=== PATIENT | female | born 1930 | race Caucasian/White ===

== ENCOUNTER 2017-08-18 14:05 | Inpatient (IN) | payer MEDICARE ==
[~2017-08-18] VITALS: Ht 144.8 cm; Wt 68.5 kg
[2017-08-18] MEDS ORDERED: SODIUM CHLORIDE FLUSH 10ML SYR IVF ONE (14:30)
[2017-08-18] MEDS ORDERED: ATOR-2 PO (15:09)
[2017-08-18] MEDS ORDERED: METO50TA82 PO (15:11)
[2017-08-18] MEDS ORDERED: OMEP-110 PO (15:11)
[2017-08-18] MEDS ORDERED: CLOP75TA PO (15:11)
[2017-08-18] MEDS ORDERED: ENAL10TA PO (15:15)
[2017-08-18] MEDS ORDERED: OMEG-170 PO (15:15)
[2017-08-18] MEDS ORDERED: ASPI-515 PO (15:15)
[2017-08-18] MEDS ORDERED: HYDR12.53 PO (15:15)
[2017-08-18] MEDS ORDERED: CALC1CAP8 PO (15:16)
[2017-08-18] MEDS ORDERED: ACET-76 PO (15:18)
[2017-08-18 17:48] VITALS: BP 159/69
[2017-08-18 18:34] VITALS: BP 143/56
[2017-08-18] MEDS ORDERED: ONDANSETRON 2MG/ML, 2ML IVPush PRN (19:00)
[2017-08-18] MEDS ORDERED: ENALAPRILAT 1.25 MG/ML, 2ML IVPush PRN (19:00)
[2017-08-18] MEDS ORDERED: morphine SULFATE 10 MG/ML, 1ML IVPush PRN (19:00)
[2017-08-18] MEDS ORDERED: POLYETHYLENE GLYCOL 17 GM PACKET PO PRN (19:00)
[2017-08-18] MEDS ORDERED: BISACODYL 10 MG SUPP PR PRN (19:00)
[2017-08-18] MEDS ORDERED: ACETAMINOPHEN 325 MG TABLET PO PRN (19:00)
[2017-08-18] MEDS ORDERED: ATROPINE 0.4 MG/ML, 1ML IVPush PRN (19:00)
[2017-08-18] MEDS ORDERED: hydrALAzine 20 MG/ML, 1ML IVPush PRN (19:00)
[2017-08-18] MEDS ORDERED: ACETAMINOPHEN 500 MG TABLET PO PRN (19:00)
[2017-08-18] MEDS ORDERED: DOCUSATE 100 MG CAPSULE PO PRN (19:00)
[2017-08-18] MEDS ORDERED: OXYcodone IR 5MG TABLET PO PRN (19:00)
[2017-08-18 19:19] LABS: PATH.CAST-FLAG NOT PRESENT; SPERM-FLAG NOT PRESENT; SRC-FLAG NOT PRESENT; XTAL-FLAG NOT PRESENT; YLC-FLAG NOT PRESENT
[2017-08-18] MEDS ORDERED: MAGNESIUM SULFATE PMX 4GM/100M 100 ML IV ONE (20:30)
[2017-08-18] MEDS ORDERED: ENALAPRIL 5MG TABLET ONE (20:35)
[2017-08-18] MEDS: HEPARIN 5,000 UNITS/ML, 1ML SQ SCH (20:38)
[2017-08-18] MEDS: OMEGA-3/FISH OIL CAPSULE PO SCH (20:39)
[2017-08-18] MEDS: ATORVASTATIN 80 MG TABLET PO SCH (20:39)
[2017-08-18] MEDS: CALCIUM/VITAMIN D3 250-125 TABLET PO SCH (20:39)
[2017-08-18] MEDS: ENALAPRIL 10 MG TABLET PO SCH (20:39)
[2017-08-18] MEDS ORDERED: METOPROLOL TARTRATE 50 MG TABLET PO SCH (21:00)
[2017-08-18 23:40] LABS: IS PT STATUS REG ER OR PRE ER? NO
[2017-08-19 01:21] VITALS: BP 110/52
[2017-08-19] MEDS: HEPARIN 5,000 UNITS/ML, 1ML SQ SCH ×3 (03:00→21:44)
[2017-08-19 04:47] LABS: HEMATOCRIT 34.8 % (34.6-47.8); WHITE BLOOD COUNT 8.6 x10^3/uL (3.4-10)
[2017-08-19 05:06] LABS: ASPARTATE AMINO TRANSFERASE 29 U/L (15-37); BLOOD UREA NITROGEN 15 mg/dL (7-18)
[2017-08-19 05:07] LABS: IS PT STATUS REG ER OR PRE ER? NO
[2017-08-19 06:54] VITALS: BP 121/67
[2017-08-19] MEDS ORDERED: CLOPIDOGREL 75 MG TABLET PO SCH (09:00)
[2017-08-19] MEDS ORDERED: ASPIRIN 81 MG TABLET EC PO SCH (09:00)
[2017-08-19] MEDS: SODIUM CHLORIDE 0.9% 1,000 ML IV SCH ×2 (09:29→17:29)
[2017-08-19] MEDS: HYDROCHLOROTHIAZIDE 12.5 MG CAPSULE PO SCH (09:56)
[2017-08-19] MEDS: CALCIUM/VITAMIN D3 250-125 TABLET PO SCH ×2 (09:56→21:46)
[2017-08-19] MEDS: OMEPRAZOLE 20 MG CAPSULE.DR PO SCH (09:56)
[2017-08-19] MEDS: OMEGA-3/FISH OIL CAPSULE PO SCH ×2 (09:57→21:45)
[2017-08-19] MEDS ORDERED: FUROSEMIDE 20 MG/2 ML IV ONE (10:30)
[2017-08-19 12:03] VITALS: BP 125/64
[2017-08-19] MEDS: CEFTRIAXONE PMX 1GM/50ML 50 ML IV SCH (12:08)
[2017-08-19 19:33] VITALS: BP 139/71
[2017-08-19] MEDS: ENALAPRIL 10 MG TABLET PO SCH (21:45)
[2017-08-19] MEDS: ATORVASTATIN 80 MG TABLET PO SCH (21:45)
[2017-08-19 21:55] VITALS: BP 138/50
[2017-08-20] MEDS: SODIUM CHLORIDE 0.9% 1,000 ML IV SCH ×3 (01:51→17:29)
[2017-08-20] MEDS: HEPARIN 5,000 UNITS/ML, 1ML SQ SCH ×3 (02:05→19:00)
[2017-08-20 02:24] VITALS: BP 100/44
[2017-08-20 06:10] LABS: BLOOD UREA NITROGEN 17 mg/dL (7-18)
[2017-08-20 07:55] VITALS: BP 117/64
[2017-08-20] MEDS ORDERED: VANCOMYCIN PMX 1GM/200ML 200 ML IVPB SCH (08:00)
[2017-08-20] MEDS: OMEGA-3/FISH OIL CAPSULE PO SCH ×2 (09:00→22:14)
[2017-08-20] MEDS: CALCIUM/VITAMIN D3 250-125 TABLET PO SCH ×2 (09:00→22:15)
[2017-08-20] MEDS: HYDROCHLOROTHIAZIDE 12.5 MG CAPSULE PO SCH (09:10)
[2017-08-20] MEDS: OMEPRAZOLE 20 MG CAPSULE.DR PO SCH (09:10)
[2017-08-20] MEDS: CEFTRIAXONE PMX 1GM/50ML 50 ML IV SCH (12:19)
[2017-08-20 13:15] VITALS: BP 146/63
[2017-08-20] MEDS ORDERED: CEFAZOLIN PMX 1GM/50ML 0 ML ONE (13:19)
[2017-08-20] MEDS ORDERED: MIDAZOLAM 1 MG/ML, 5ML ONE (13:19)
[2017-08-20] MEDS ORDERED: FENTANYL PF 100 MCG/2ML ONE (13:19)
[2017-08-20] MEDS ORDERED: CEFAZOLIN 1,000 MG ONE (13:20)
[2017-08-20] MEDS ORDERED: VANCOMYCIN 500 MG ONE (13:41)
[2017-08-20] MEDS ORDERED: LIDOCAINE 2%, 20ML ONE (14:03)
[2017-08-20] MEDS ORDERED: HYDROcodone/APAP 5/325 TABLET PO PRN (15:00)
[2017-08-20 20:12] VITALS: BP 131/68
[2017-08-20] MEDS: ATORVASTATIN 80 MG TABLET PO SCH (22:14)
[2017-08-20] MEDS: ENALAPRIL 10 MG TABLET PO SCH (22:14)
[2017-08-20 23:26] VITALS: BP 111/71
[2017-08-21 06:00] VITALS: BP 127/82
[2017-08-21] MEDS ORDERED: ASPIRIN 81 MG TABLET EC PO SCH (06:00)
[2017-08-21] MEDS ORDERED: METOPROLOL SUCCINATE 25 MG TAB.ER.24H PO SCH (06:00)
[2017-08-21] MEDS: CALCIUM/VITAMIN D3 250-125 TABLET PO SCH (07:32)
[2017-08-21] MEDS: HYDROCHLOROTHIAZIDE 12.5 MG CAPSULE PO SCH (07:32)
[2017-08-21] MEDS: OMEPRAZOLE 20 MG CAPSULE.DR PO SCH (07:32)
[2017-08-21] MEDS: OMEGA-3/FISH OIL CAPSULE PO SCH (07:32)
[2017-08-21 08:31] VITALS: BP 126/79
[2017-08-21] MEDS ORDERED: CLOPIDOGREL 75 MG TABLET PO SCH (09:00)
[2017-08-21] MEDS: CEFTRIAXONE PMX 1GM/50ML 50 ML IV SCH ×2 (11:01→12:49)
[2017-08-21 12:31] VITALS: BP 124/74
[2017-08-21] MEDS ORDERED: CEPH-376 PO (14:15)
[2017-08-21] MEDS ORDERED: TRAM50TA2 PO (15:30)
== END 2017-08-21 15:46 | disposition home health service (06) | DRG 242 ==
LOC: ED 14:30 → EDIP 14:36 → ED 14:55 → 5SO 17:36 → DCLOUNGE 08-21 15:27
PROVIDERS: ADMIT Internal Medicine; ATTEND Internal Medicine
PROC: 02H63JZ Insertion of Pacemaker Lead into Right Atrium, Percutaneous Approach (ICD-10-PCS; principal; 2017-08-20)
PROC: 0JH606Z Insertion of Pacemaker, Dual Chamber into Chest Subcutaneous Tissue and Fascia, Open Approach (ICD-10-PCS; 2017-08-20)
PROC: 02HK3JZ Insertion of Pacemaker Lead into Right Ventricle, Percutaneous Approach (ICD-10-PCS; 2017-08-20)
DX: I44.2 Atrioventricular block, complete (principal); J18.9 Pneumonia, unspecified organism; E44.0 Moderate protein-calorie malnutrition; D75.89 Other specified diseases of blood and blood-forming organs; N39.0 Urinary tract infection, site not specified; I34.0 Nonrheumatic mitral (valve) insufficiency; E78.5 Hyperlipidemia, unspecified; I10 Essential (primary) hypertension; M19.90 Unspecified osteoarthritis, unspecified site; B96.20 Unspecified Escherichia coli [E. coli] as the cause of diseases classified elsewhere; I25.10 Atherosclerotic heart disease of native coronary artery without angina pectoris; K21.9 Gastro-esophageal reflux disease without esophagitis; I25.2 Old myocardial infarction; Z68.32 Body mass index [BMI] 32.0-32.9, adult; Z79.899 Other long term (current) drug therapy; Z87.891 Personal history of nicotine dependence; Z95.5 Presence of coronary angioplasty implant and graft; Z90.710 Acquired absence of both cervix and uterus; Z88.1 Allergy status to other antibiotic agents; Z88.2 Allergy status to sulfonamides
CPT/HCPCS: 33208; 36415; 71010; 71020; 80048; 80053; 80061; 81001; 82306; 82607; 83036; 83735; 84439; 84443; 84484; 85025; 87077; 87086; 87186; 93005; 93306; 99156; 99157; 99285; C1779; C1785; C1892; J0690; J0696; J1644; J2250; J3010; J3370; J3490; J1940; J3475; J7030

== ENCOUNTER 2017-12-08 22:01 | Inpatient (IN) | payer MEDICARE ==
[~2017-12-08] VITALS: Ht 144.8 cm; Wt 69.7 kg
[~2017-12-08 22:01] MED LIST: ACET-76 PO; ASPI-515 PO; ATOR-2 PO; CALC1CAP8 PO; CEPH-376 PO; CLOP75TA PO; ENAL10TA PO; HYDR12.53 PO; METO50TA82 PO; OMEG-170 PO; OMEP-110 PO; TRAM50TA2 PO
[2017-12-09] VITALS (7 sets, daily range): BP systolic 119–179; BP diastolic 61–79
[2017-12-09] MEDS ORDERED: ENAL5TAB PO (00:20)
[2017-12-09] MEDS ORDERED: hydrALAzine 20 MG/ML, 1ML IVPush PRN (00:30)
[2017-12-09] MEDS ORDERED: ONDANSETRON 2MG/ML, 2ML IVPush PRN (00:30)
[2017-12-09] MEDS ORDERED: ACETAMINOPHEN 325 MG TABLET PO PRN (00:30)
[2017-12-09] MEDS: TEMAZEPAM 15 MG CAPSULE PO PRN ×2 (00:33→22:30)
[2017-12-09] MEDS: HEPARIN 5,000 UNITS/ML, 1ML SQ SCH ×3 (00:33→16:46)
[2017-12-09] MEDS ORDERED: ENALAPRIL 5MG TABLET ONE (01:06)
[2017-12-09] MEDS: ATORVASTATIN 80 MG TABLET PO SCH ×2 (01:07→22:30)
[2017-12-09] MEDS: ENALAPRIL 10 MG TABLET PO SCH ×2 (01:08→22:31)
[2017-12-09 01:16] LABS: TROPONIN I < 0.015 ng/mL (0.000-0.045)
[2017-12-09 06:14] LABS: TROPONIN I < 0.015 ng/mL (0.000-0.045)
[2017-12-09] MEDS ORDERED: REGADENOSON 0.4 MG/5 ML SYRINGE ONE (08:19)
[2017-12-09] MEDS ORDERED: METOPROLOL TARTRATE 50 MG TABLET PO SCH (09:00)
[2017-12-09] MEDS: ASPIRIN 81 MG TABLET EC PO SCH (09:03)
[2017-12-09] MEDS: OMEPRAZOLE 20 MG CAPSULE.DR PO SCH (09:04)
[2017-12-09] MEDS: CLOPIDOGREL 75 MG TABLET PO SCH (09:04)
[2017-12-09] MEDS: OMEGA-3/FISH OIL CAPSULE PO SCH ×2 (09:04→22:30)
[2017-12-09 09:28] LABS: BASOPHILS # (AUTO) 0.01 x10^3/uL (0-0.1); BASOPHILS % (AUTO) 0 % (0-1); EOSINOPHILS % (AUTO) 0 % (1-7); LYMPHOCYTES # (AUTO) 0.63 x10^3/uL (1-3.4); LYMPHOCYTES % (AUTO) 14 % (22-44); MD NO; MEAN CORPUSCULAR HGB CONC 33.4 g/dL (32.4-35.8); MEAN CORPUSCULAR VOLUME 98.8 fL (80-100); MEAN PLATELET VOLUME 6.4 fL (7.4-10.4); MONOCYTES # (AUTO) 0.08 x10^3/uL (0.2-0.8); MONOCYTES % (AUTO) 2 % (2-9); NEUTROPHILS # (AUTO) 3.86 x10^3/uL (1.8-6.8); NEUTROPHILS % (AUTO) 84 % (42-75); PLATELET COUNT 282 x10^3/uL (130-400); RED BLOOD COUNT 3.93 x10^6/uL (3.82-5.3); RED CELL DISTRIBUTION WIDTH 13.7 % (9.6-15.2)
[2017-12-09 09:38] LABS: ALBUMIN 3.3 g/dL (3.4-5.0); ANION GAP 8 mmol/L (5-15); CALCIUM 8.6 mg/dL (8.5-10.1); CHLORIDE 98 mmol/L (98-107); CREATININE 0.66 mg/dL (0.55-1.02)
[2017-12-09] MEDS ORDERED: MAGNESIUM SULFATE PMX 2GM/50ML 50 ML IV ONE (11:00)
[2017-12-09] MEDS: ENALAPRIL 5MG TABLET PO SCH (12:24)
[2017-12-09 20:04] LABS: MICROSCOPIC AUTO
[2017-12-09 20:06] LABS: CULTURE INDICATED? YES
[2017-12-09] MEDS: METOPROLOL TARTRATE 25 MG TABLET PO SCH (22:30)
[2017-12-10] MEDS: HEPARIN 5,000 UNITS/ML, 1ML SQ SCH ×4 (01:09→23:47)
[2017-12-10 01:14] VITALS: BP 142/70
[2017-12-10 05:02] LABS: BASOPHILS % (AUTO) 0 % (0-1); EOSINOPHILS # (AUTO) 0.04 x10^3/uL (0-0.4); EOSINOPHILS % (AUTO) 0 % (1-7); LYMPHOCYTES # (AUTO) 1.05 x10^3/uL (1-3.4); LYMPHOCYTES % (AUTO) 8 % (22-44); MD NO; MEAN CORPUSCULAR HEMOGLOBIN 33.9 pg (27.0-34.8); MEAN CORPUSCULAR HGB CONC 34.3 g/dL (32.4-35.8); MEAN CORPUSCULAR VOLUME 98.9 fL (80-100); MEAN PLATELET VOLUME 6.7 fL (7.4-10.4); MONOCYTES # (AUTO) 0.78 x10^3/uL (0.2-0.8); MONOCYTES % (AUTO) 6 % (2-9); NEUTROPHILS # (AUTO) 10.65 x10^3/uL (1.8-6.8); NEUTROPHILS % (AUTO) 85 % (42-75); PLATELET COUNT 257 x10^3/uL (130-400); RED BLOOD COUNT 3.71 x10^6/uL (3.82-5.3); RED CELL DISTRIBUTION WIDTH 14.2 % (9.6-15.2)
[2017-12-10 05:08] LABS: ALBUMIN 3.1 g/dL (3.4-5.0); ANION GAP 6 mmol/L (5-15); CALCIUM 8.3 mg/dL (8.5-10.1); CHLORIDE 100 mmol/L (98-107); CREATININE 0.67 mg/dL (0.55-1.02)
[2017-12-10 07:10] VITALS: BP 115/63
[2017-12-10] MEDS: CLOPIDOGREL 75 MG TABLET PO SCH (08:59)
[2017-12-10] MEDS: METOPROLOL TARTRATE 25 MG TABLET PO SCH ×2 (08:59→21:53)
[2017-12-10] MEDS: OMEPRAZOLE 20 MG CAPSULE.DR PO SCH (08:59)
[2017-12-10] MEDS: OMEGA-3/FISH OIL CAPSULE PO SCH ×2 (08:59→21:53)
[2017-12-10] MEDS: ASPIRIN 81 MG TABLET EC PO SCH (09:00)
[2017-12-10] MEDS: ENALAPRIL 5MG TABLET PO SCH (09:01)
[2017-12-10] MEDS: CEFTRIAXONE PMX 1GM/50ML 50 ML IV SCH (11:00)
[2017-12-10] MEDS: DOXYCYCLINE 100MG TABLET PO SCH ×2 (11:00→21:53)
[2017-12-10 12:00] VITALS: BP 133/78
[2017-12-10 14:30] VITALS: BP 146/79
[2017-12-10 20:38] VITALS: BP 139/78
[2017-12-10] MEDS: ATORVASTATIN 80 MG TABLET PO SCH (21:53)
[2017-12-10] MEDS: ENALAPRIL 10 MG TABLET PO SCH (21:53)
[2017-12-10] MEDS: TEMAZEPAM 15 MG CAPSULE PO PRN (23:47)
[2017-12-11 05:03] VITALS: BP 143/77
[2017-12-11 08:10] VITALS: BP 142/79
[2017-12-11 08:59] LABS: BASOPHILS # (AUTO) 0.02 x10^3/uL (0-0.1); BASOPHILS % (AUTO) 0 % (0-1); EOSINOPHILS # (AUTO) 0.23 x10^3/uL (0-0.4); EOSINOPHILS % (AUTO) 3 % (1-7); LYMPHOCYTES # (AUTO) 1.57 x10^3/uL (1-3.4); LYMPHOCYTES % (AUTO) 19 % (22-44); MD NO; MEAN CORPUSCULAR HEMOGLOBIN 32.9 pg (27.0-34.8); MEAN CORPUSCULAR HGB CONC 33.4 g/dL (32.4-35.8); MEAN CORPUSCULAR VOLUME 98.8 fL (80-100); MEAN PLATELET VOLUME 6.4 fL (7.4-10.4); MONOCYTES # (AUTO) 0.63 x10^3/uL (0.2-0.8); MONOCYTES % (AUTO) 8 % (2-9); NEUTROPHILS # (AUTO) 5.62 x10^3/uL (1.8-6.8); NEUTROPHILS % (AUTO) 70 % (42-75); PLATELET COUNT 292 x10^3/uL (130-400); RED CELL DISTRIBUTION WIDTH 14.3 % (9.6-15.2)
[2017-12-11] MEDS: CLOPIDOGREL 75 MG TABLET PO SCH (09:05)
[2017-12-11] MEDS: ENALAPRIL 5MG TABLET PO SCH (09:05)
[2017-12-11] MEDS: OMEPRAZOLE 20 MG CAPSULE.DR PO SCH (09:05)
[2017-12-11] MEDS: METOPROLOL TARTRATE 25 MG TABLET PO SCH (09:06)
[2017-12-11] MEDS: ASPIRIN 81 MG TABLET EC PO SCH (09:06)
[2017-12-11] MEDS: DOXYCYCLINE 100MG TABLET PO SCH ×2 (09:06→22:53)
[2017-12-11] MEDS: OMEGA-3/FISH OIL CAPSULE PO SCH ×2 (09:06→22:52)
[2017-12-11] MEDS: HEPARIN 5,000 UNITS/ML, 1ML SQ SCH ×2 (09:06→16:02)
[2017-12-11 09:07] LABS: ALBUMIN 3.3 g/dL (3.4-5.0); ANION GAP 7 mmol/L (5-15); CALCIUM 8.5 mg/dL (8.5-10.1); CHLORIDE 100 mmol/L (98-107); CREATININE 0.59 mg/dL (0.55-1.02)
[2017-12-11] MEDS ORDERED: SODIUM PHOSPHATE 30 MMOL in SODIUM CHLORIDE 0.9% 500 ML IV ONE (11:00)
[2017-12-11] MEDS ORDERED: SODIUM PHOSPHATE 4 MEQ/ML IV SCH (11:00)
[2017-12-11] MEDS: CEFTRIAXONE PMX 1GM/50ML 50 ML IV SCH (11:30)
[2017-12-11] MEDS ORDERED: METOPROLOL TARTRATE 25 MG TABLET ONE (12:50)
[2017-12-11 13:20] VITALS: BP 146/64
[2017-12-11] MEDS ORDERED: METOPROLOL TARTRATE 25 MG TABLET PO ONE (14:00)
[2017-12-11 20:09] VITALS: BP 148/81
[2017-12-11] MEDS: ENALAPRIL 10 MG TABLET PO SCH (22:52)
[2017-12-11] MEDS: METOPROLOL TARTRATE 50 MG TABLET PO SCH (22:52)
[2017-12-11] MEDS: TEMAZEPAM 15 MG CAPSULE PO PRN (22:52)
[2017-12-11] MEDS: ATORVASTATIN 80 MG TABLET PO SCH (22:53)
[2017-12-12 02:57] VITALS: BP 118/75
[2017-12-12] MEDS: HEPARIN 5,000 UNITS/ML, 1ML SQ SCH (03:27)
[2017-12-12 06:00] LABS: BASOPHILS # (AUTO) 0.02 x10^3/uL (0-0.1); BASOPHILS % (AUTO) 0 % (0-1); EOSINOPHILS # (AUTO) 0.31 x10^3/uL (0-0.4); EOSINOPHILS % (AUTO) 5 % (1-7); LYMPHOCYTES # (AUTO) 1.71 x10^3/uL (1-3.4); LYMPHOCYTES % (AUTO) 29 % (22-44); MD NO; MEAN CORPUSCULAR HEMOGLOBIN 33.8 pg (27.0-34.8); MEAN CORPUSCULAR HGB CONC 34.4 g/dL (32.4-35.8); MEAN CORPUSCULAR VOLUME 98.3 fL (80-100); MEAN PLATELET VOLUME 6.2 fL (7.4-10.4); MONOCYTES # (AUTO) 0.62 x10^3/uL (0.2-0.8); MONOCYTES % (AUTO) 10 % (2-9); NEUTROPHILS # (AUTO) 3.29 x10^3/uL (1.8-6.8); NEUTROPHILS % (AUTO) 55 % (42-75); PLATELET COUNT 282 x10^3/uL (130-400); RED BLOOD COUNT 3.43 x10^6/uL (3.82-5.3); RED CELL DISTRIBUTION WIDTH 14.1 % (9.6-15.2)
[2017-12-12 06:11] LABS: ALBUMIN 2.7 g/dL (3.4-5.0); ANION GAP 6 mmol/L (5-15); CALCIUM 8.2 mg/dL (8.5-10.1); CHLORIDE 107 mmol/L (98-107)
[2017-12-12 06:15] LABS: CREATININE 0.48 mg/dL (0.55-1.02)
[2017-12-12 07:10] VITALS: BP 151/83
[2017-12-12 08:20] VITALS: BP 166/89
[2017-12-12] MEDS: METOPROLOL TARTRATE 50 MG TABLET PO SCH (08:28)
[2017-12-12] MEDS: DOXYCYCLINE 100MG TABLET PO SCH (08:28)
[2017-12-12] MEDS: OMEPRAZOLE 20 MG CAPSULE.DR PO SCH (08:28)
[2017-12-12] MEDS: OMEGA-3/FISH OIL CAPSULE PO SCH (08:28)
[2017-12-12] MEDS: CLOPIDOGREL 75 MG TABLET PO SCH (08:28)
[2017-12-12] MEDS: ASPIRIN 81 MG TABLET EC PO SCH (08:28)
[2017-12-12] MEDS: ENALAPRIL 5MG TABLET PO SCH (08:28)
[2017-12-12] MEDS ORDERED: DOXY100T PO (09:15)
[2017-12-12] MEDS ORDERED: CEFD300C37 PO (09:15)
[2017-12-12] MEDS ORDERED: CEFTRIAXONE PMX 1GM/50ML 50 ML IV SCH (09:30)
== END 2017-12-12 11:00 | disposition home or self-care (01) | DRG 304 ==
LOC: 5SO 23:21 → DCLOUNGE 12-12 10:46
PROVIDERS: ADMIT Internal Medicine; ATTEND Internal Medicine
DX: I16.0 Hypertensive urgency (principal); J18.9 Pneumonia, unspecified organism; I27.20 Pulmonary hypertension, unspecified; E83.42 Hypomagnesemia; E87.1 Hypo-osmolality and hyponatremia; I11.9 Hypertensive heart disease without heart failure; N39.0 Urinary tract infection, site not specified; R07.9 Chest pain, unspecified; R73.9 Hyperglycemia, unspecified; K21.9 Gastro-esophageal reflux disease without esophagitis; I25.10 Atherosclerotic heart disease of native coronary artery without angina pectoris; E78.5 Hyperlipidemia, unspecified; B96.20 Unspecified Escherichia coli [E. coli] as the cause of diseases classified elsewhere; J00 Acute nasopharyngitis [common cold]; Z66 Do not resuscitate; Z79.899 Other long term (current) drug therapy; I25.2 Old myocardial infarction; Z90.710 Acquired absence of both cervix and uterus; Z95.0 Presence of cardiac pacemaker; Z95.5 Presence of coronary angioplasty implant and graft
CPT/HCPCS: 36415; 71045; 71046; 78452; 80048; 81001; 82040; 83735; 84100; 84484; 85025; 87040; 87077; 87086; 87186; 93017; 93306; 99285; J0696; J1644; J2785; A9502; C9898; J3475; J7040